=== PATIENT | female | born 1965 | race Two or more races ===

== ENCOUNTER → 2017-06-09 | Outpatient (CLI) | payer OTHER ==
--- NOTE | 2017-06-09 11:49 | RAD ---
Right thigh ultrasound, 06/09/2017: History: Pain The area of clinical concern in the posterior aspect of the right thigh was carefully scanned. Normal subcutaneous and muscular echoes are present. No mass or abnormal fluid collection is seen. If symptoms persist, MR scanning may be useful for further evaluation.
== END | disposition home or self-care (01) ==
LOC: US 10:51
PROVIDERS: ATTEND Family Medicine
DX: M79.651 Pain in right thigh (principal); R22.41 Localized swelling, mass and lump, right lower limb
CPT/HCPCS: 76881

== ENCOUNTER → 2019-04-13 | Outpatient (CLI) | payer OTHER ==
--- NOTE | 2019-04-13 15:46 | RAD ---
EXAM: PELVIC ULTRASOUND. HISTORY: Postmenopausal bleeding, pelvic cramping. COMPARISON: None. FINDINGS: Sonographic evaluation of the pelvis was performed transabdominally and transvaginally. The uterus is anteverted and measures 11.7 x 5.9 x 5.0 cm. The endometrial stripe measures 15 mm and contains multiple small cysts. No internal perfusion is demonstrated. A small amount of endometrial fluid is noted. No solid masses are identified. There is no significant free fluid. The right ovary measures 2.4 x 1.6 x 1.9 cm. The left ovary measures 2.5 x 1.9 x 1.7 cm. There is normal Doppler flow bilaterally. There are no suspicious lesions. IMPRESSION: 1. The endometrium is thickened in a postmenopausal patient at 15 mm and contains multiple small cysts. Correlate for hormone replacement therapy. Ongoing follow-up of postmenopausal bleeding or endometrial tissue sampling is recommended. Electronically signed by: Amparo Tran MD (04/13/2019 3:43 PM) [facility]
== END | disposition home or self-care (01) ==
LOC: US 12:54
PROVIDERS: ATTEND Physician Assistant
DX: N85.8 Other specified noninflammatory disorders of uterus (principal); N95.9 Unspecified menopausal and perimenopausal disorder; Z79.890 Hormone replacement therapy
CPT/HCPCS: 76830; 76856

== ENCOUNTER → 2020-11-21 | Outpatient (CLI) | payer OTHER | LOC: LAB 07:30 | PROVIDERS: ATTEND Nurse Anesthetist, Certified Registered | DX: Z01.812 Encounter for preprocedural laboratory examination (principal); R22.0 Localized swelling, mass and lump, head; Z20.828 Contact with and (suspected) exposure to other viral communicable diseases | CPT/HCPCS: U0003 ==

== ENCOUNTER → 2020-11-25 | Day surgery (SDC) | payer OTHER ==
[~2020-11-25] MED LIST: BUPIVACAINE-EPI 0.25%-1:200000 MPF 30 ML VIAL. ONE; NEOMY/BACITR/POLYMYXIN OINT PACKET. TP ONE
--- NOTE | 2020-11-25 12:47 | PDOC4 ---
Operative Report DATE November 25, 2020 at 1244 Preop Diagnosis Scalp mass Post-op Diagnosis Same Operation Performed Excision of scalp mass 55-year-old female with a mass on the top of her scalp she has had previous sebaceous cyst removed. Procedure of excision of mass was explained to the patient detail risk-benefit were also discussed including bleeding infection alternatives to this procedure also discussed with the patient who seemed to understand and gave both verbal and written consent to have the procedure performed. Patient was taken to the minors room placed in a sitting position her scalp was prepped and draped in usual sterile fashion using Betadine scrub and solution. Area over the mass was injected with quarter percent Marcaine with epinephrine incision was made with 15 blade scalpel is carried down through the subcutaneous tissues excising the mass which appeared to be a sebaceous cyst completely. The mass was 1 x 1 cm incision was 2 cm in length wound was then closed in a single layer running 4-0 Monocryl. Wound dressed with a island dressing. Patient was discharged home in stable condition. All sponge instrument needle counts listed as correct estimated blood loss 10 mL Surgeon Aaron ANESTHESIA PROPOSED: LOCAL Blood Loss 10 mL Specimen Scalp lesion sebaceous cyst 1 x 1 cm Complications None CHUCHO ADAME MD Nov 25, 2020 12:47
--- NOTE | 2020-11-25 12:48 | DISCH ---
DISCHARGE INSTRUCTIONS-DC Condition on Discharge Condition on Discharge: Stable Activity after Discharge Activity Instructions for Disc: No restrictions Diet after Discharge Diet after Discharge: Regular Wound/Incision Care Other wound/incision instructi: Janeth shower in 24 hours Contacting the DREzekiel after DC Call your doctor for: If your condition worsens Follow-Up Follow up with: Dr. Adame in 2 weeks CHUCHO ADAME MD Nov 25, 2020 12:48
[2020-11-25 12:52] VITALS: BP 158/90
--- NOTE | 2020-12-01 14:09 | PATHOLOGY ---
[facility] Accession Number: [id number] . 01 Material submitted: . scalp - SEBACEOUS CYST, SCALP . 01 Clinical history: . SEBACEOUS CYST SCALP . 02 Diagnosis: Skin and fibrous tissue, scalp cyst excision: - Pilar cyst, showing chronic and mild acute inflammation. (JPM:italo; 12/01/2020) S 12/01/2020 1149 Local . 02 Comment: There is no evidence of malignancy. (JPM:italo 12/01/2020) . 02 Electronically signed: . Reagan Nieves MD, Pathologist NPI- [id number] . 01 Gross description: . Received in formalin labeled "Young, Gina, sebaceous cyst scalp" is an unoriented irregular, disrupted cystic structure measuring 3.1 x 2.1 x 0.4 cm with attached burns white pigmented skin ellipse measuring 1.4 x 0.4 cm. The cystic lining is smooth, burns white without papillary excrescences. The surgical resection margin is inked black and the specimen is serially sectioned to reveal burns-brown cut surface. Echo Technician sections of the specimen are submitted in cassette A1.([facility]; 11/28/2020) GZA/GZA 11/28/2020 1119 Local . 02 Pathologist provided ICD-10: L72.11 . 02 CPT . 198973 Specimen Comment: A courtesy copy of this report has been sent to [phone] Specimen Comment: Report sent to Specimen Comment: A duplicate report has been generated due to demographic updates. Performed at: 01 [facility] [address], [place], [place] [id number] MD Zachariah Pisano MD Phone: [phone] Performed at: 02 [facility] [address] [place], [place] [id number] MD Reagan Nieves MD Phone: [phone]
== END | disposition home or self-care (01) ==
LOC: SURG 11:31
PROVIDERS: ATTEND Surgery
DX: R22.0 Localized swelling, mass and lump, head (principal); L72.11 Pilar cyst; L72.3 Sebaceous cyst; Z88.5 Allergy status to narcotic agent; Z88.8 Allergy status to other drugs, medicaments and biological substances; Z79.890 Hormone replacement therapy
CPT/HCPCS: 11421; J3490; 88304

== ENCOUNTER → 2020-12-26 | Outpatient (CLI) | payer OTHER ==
[2020-11-25 12:52] VITALS: BP 158/90
== END ==
LOC: LAB 09:05
PROVIDERS: ATTEND Nurse Anesthetist, Certified Registered
DX: Z01.812 Encounter for preprocedural laboratory examination (principal); Z20.822 Contact with and (suspected) exposure to COVID-19; L72.11 Pilar cyst
CPT/HCPCS: U0003

== ENCOUNTER → 2020-12-30 | Day surgery (SDC) | payer OTHER ==
[2020-12-30 12:09] VITALS: BP 144/86
--- NOTE | 2020-12-30 12:54 | PDOC4 ---
Operative Report DATE Date: December 302020 at 1250 Preop Diagnosis Scalp mass x2 Post-op Diagnosis Same Operation Performed Excision of scalp mass x2 Patient is a 55-year-old female with known history of epidermal cysts of the scalp she is requesting to more cyst be removed. Procedure of excision of cyst was explained to the patient detail was benefits were also discussed including bleeding infection alternatives this procedure also discussed with patient who seemed to understand and gave both verbal and written consent to have the procedure performed. Patient was taken to the minors room placed in the supine position the 2 masses were prepped and draped usual sterile fashion using Betadine solution. Area over the larger mass was injected with quarter percent Marcaine with epinephrine incision made with 15 blade scalpel the cyst was excised. Cyst size was about 2 cm and the incision was 3 cm in length. The wound was closed in a single layer running 4-0 Monocryl. Tensions returned to the second cyst which was excised in similar fashion it was smaller with 1 cm in size and 2 cm in length of incision. The wound was closed again with 4-0 Monocryl patient was discharged home in stable condition all sponge instrument needle counts listed as correct Surgeon Aaron ANESTHESIA PROPOSED: LOCAL Blood Loss 5 mL Specimen Scalp mass x2 CHUCHO ADAME MD Dec 30, 2020 12:54
--- NOTE | 2020-12-30 13:15 | DISCH ---
DISCHARGE INSTRUCTIONS-DC Condition on Discharge Condition on Discharge: Stable Activity after Discharge Activity Instructions for Disc: Activity as tolerated Diet after Discharge Diet after Discharge: Regular Wound/Incision Care Other wound/incision instructi: Aurelio SHOWER IN 24 HOURS Contacting the after DC Call your doctor for: If your condition worsens Follow-Up Follow up with: Dr Adame in 2 weeks CHUCHO ADAME MD Dec 30, 2020 13:14
--- NOTE | 2021-01-02 17:07 | PATHOLOGY ---
[facility] Accession Number: [id number] . 01 Material submitted: . scalp - SCALP CYST . 01 Clinical history: . EXCISION SCALP CYST . 02 Diagnosis: Scalp cysts, excision: - Pilar cysts, with focal calcification. (JPM:italo; 01/02/2021) S 01/02/2021 1659 Local . 02 Electronically signed: . Reagan Nieves MD, Pathologist NPI- [id number] . 01 Gross description: . Received in formalin labeled "Young, Gina, scalp cysts" are multiple fragmented/previously opened portions of burns-white cyst wall and yellow-burns amorphous material measuring in aggregate 4.1 x 3.0 x 1.8 cm. Intermediate Project Manager tissue is submitted in cassette A1. ([facility]; 01/01/2021) [facility] 01/01/2021 1021 Local . 02 Pathologist provided ICD-10: L72.11 . 02 CPT . 226297 Specimen Comment: A courtesy copy of this report has been sent to [phone] Specimen Comment: Report sent to / Performed at: 01 [facility] [address], [place] [id number] MD Zachariah Pisano MD Phone: [phone] Performed at: 02 [facility] [address] [place], [place] [id number] MD Reagan Nieves MD Phone: [phone]
== END | disposition home or self-care (01) ==
LOC: SURG 11:14
PROVIDERS: ATTEND Surgery
DX: L72.11 Pilar cyst (principal); Z88.0 Allergy status to penicillin; Z88.5 Allergy status to narcotic agent; Z79.899 Other long term (current) drug therapy
CPT/HCPCS: 11421; 11422; J3490

== ENCOUNTER → 2021-03-04 | Day surgery (SDC) | payer OTHER ==
[~2021-03-04] MED LIST changes: -BUPIVACAINE-EPI 0.25%-1:200000 MPF 30 ML VIAL. ONE; +LIDOCAINE 2%/EPI 1:100,000 20 ML VIAL. INJ ONE; +LIDOCAINE 2%/EPI 1:100,000 20 ML VIAL. ONE; -NEOMY/BACITR/POLYMYXIN OINT PACKET. TP ONE
--- NOTE | 2021-03-04 08:12 | PDOC4 ---
Operative Report DATE March 04, 2021 at 810 Preop Diagnosis Mid upper back mass Post-op Diagnosis Same Operation Performed Excision of mid upper back mass Patient is a 55-year-old female complaining of enlarging mass on her upper back been present for a number years. Procedure of excision of mass was explained to the patient detail risk-benefit were also discussed including bleeding infection alternatives to the procedure also discussed with patient who seemed to understand and gave a verbal written consent to have the procedure performed. Patient was taken to the minors room placed in the prone positioning her back was prepped and draped usual sterile fashion using ChloraPrep. Area around the mass was injected with 1% lidocaine with epinephrine once this was anesthetized and incision was made over the mass is carried down through the subcutaneous tissue with a 15 blade scalpel the mass was encountered it was sharply excised and sent for pathology the size of mass approximately 3 cm in diameter the incision was 5 cm in length. The wound was then closed in a single layer 4-0 subcuticular Monocryl Mastisol Steri-Strips and island dressing were applied. Patient tolerated procedure well was discharged [facility] in stable condition all sponge instrument needle counts listed as correct estimated blood loss 5 mL Surgeon Aaron ANESTHESIA PROPOSED: LOCAL Blood Loss 5 mL Specimen Mid upper back mass Complications None CHUCHO ADAME MD Mar 04, 2021 08:12
--- NOTE | 2021-03-04 08:13 | DISCH ---
DISCHARGE INSTRUCTIONS-DC Condition on Discharge Condition on Discharge: Stable Activity after Discharge Activity Instructions for Disc: Avoid exertion Diet after Discharge Diet after Discharge: Regular Wound/Incision Care Other wound/incision instructi: Janeth shower in 24 hours Contacting the DREzekiel after DC Call your doctor for: If your condition worsens Follow-Up Follow up with: Dr. Adame in 2 weeks CHUCHO ADAME MD Mar 04, 2021 08:13
[2021-03-04 08:17] VITALS: BP 124/72
--- NOTE | 2021-03-11 14:03 | PDOC1 ---
History of Present Illness Reason for Visit: Admitted for excision of scalp lesion on March 04, 2021 History of Present Illness 55-year-old female with complaints of a mass on her scalp she has had several in the past which have been removed Allergies: Coded Allergies: codeine (Verified Allergy, Unknown, 03/04/21) erythromycin base (Verified Allergy, Unknown, 03/04/21) Past Medical History Cardiac: No pertinent hx Pulmonary: No pertinent hx GI: No pertinent hx Heme/Onc: No pertinent hx Hepatobiliary: No pertinent hx Psych: No pertinent hx Musculoskeletal: No pertinent hx Rheumatologic: No pertinent hx Infectious disease: No pertinent hx ENT: No pertinent hx Renal/: No pertinent hx Endocrine: No pertinent hx Dermatology: No pertinent hx Past Surgical History: No pertinent history Family History: No pertinent hx Past Social History Smoke: No Alcohol: none Lives: with Family Review of Systems Review Of Systems Fourteen system , review of systems has been reviewed. See HPI for pertinent positives and negative responses, other ortiz all other systems are negative, non pertinent or non contributory Medications Current Medications Lidocaine/ Epinephrine (Xylocaine 2%-Epi 1:100,000) 20 ml STK-MED ONCE .ROUTE ; Start 03/04/21 at 07:40; Stop 03/04/21 at 07:41; Status DC Lidocaine/ Epinephrine (Xylocaine 2%-Epi 1:100,000) 20 ml STK-MED ONCE INJ Last administered on 03/04/21at 07:56; Start 03/04/21 at 07:56; Stop 03/04/21 at 08:19; Status DC Active Scripts Active No Active Prescriptions or Reported Medications Exam Vital Signs Vital Signs Date Time Temp Pulse Resp B/P (MAP) Pulse Ox O2 Delivery O2 Flow Rate FiO2 03/04/21 08:17 97.2 85 20 124/72 (89) 98 Room Air General Appearance: Alert, Oriented X3, Cooperative, No acute distress HEENT: Atraumatic, EOMI Respiratory: Clear to auscultation, Normal air movement Heart: Regular rate, No murmurs Abdominal: Normal bowel sounds, Soft, No tenderness Extremities: No edema Skin: No significant lesion (Scalp mass 2 cm nontender) Psych/Mental Status: Mental status NL Assessment/Plan Assessment/Plan Excision of scalp mass COURSE Allergies Coded Allergies Type Severity Reaction Last Updated Verified codeine Allergy Unknown 03/04/21 Yes erythromycin base Allergy Unknown 03/04/21 Yes Vital Signs Date Time Temp Pulse Resp B/P (MAP) Pulse Ox O2 Delivery O2 Flow Rate FiO2 03/04/21 08:17 97.2 85 20 124/72 (89) 98 Room Air Justification of Admission: Justification of Admission: Justification of Admission Dx: N/A CHUCHO ADAME MD March 11, 2021 14:03
== END | disposition home or self-care (01) ==
LOC: SURG 07:04
PROVIDERS: ATTEND Surgery
DX: R22.2 Localized swelling, mass and lump, trunk (principal); L72.11 Pilar cyst; L72.3 Sebaceous cyst; Z88.8 Allergy status to other drugs, medicaments and biological substances; Z79.899 Other long term (current) drug therapy; Z98.890 Other specified postprocedural states; Z88.5 Allergy status to narcotic agent
CPT/HCPCS: 88304